=== PATIENT | male | born 1945 | race Caucasian/White ===

== ENCOUNTER 2021-04-11 13:22 | Outpatient (CLI) | payer MEDICARE, BC ==
[2021-04-12 01:33] LABS: SARS-CoV-2 PCR by NAA Not Detected (NotDetected)
== END 2021-04-11 13:23 | disposition home or self-care (01) ==
LOC: CSHLAB 13:22
PROVIDERS: ATTEND Internal Medicine Pulmonary Disease
DX: Z20.822 Contact with and (suspected) exposure to COVID-19 (principal)
CPT/HCPCS: U0003; U0005

== ENCOUNTER 2022-11-06 10:58 | Outpatient (CLI) | payer MEDICARE, BC ==
[2022-11-06] MEDS ORDERED: Magnevist 469MG/ML 20 ML VIAL ONE (15:15)
== END 2022-11-06 10:59 | disposition home or self-care (01) ==
LOC: CSHSPEC 10:58
PROVIDERS: ATTEND Urology
DX: R97.20 Elevated prostate specific antigen [PSA] (principal); Z95.0 Presence of cardiac pacemaker
CPT/HCPCS: 71045; 72197; 82565; A9579

== ENCOUNTER 2023-05-20 13:26 | Outpatient (CLI) | payer MEDICARE, BC | END 2023-05-20 13:27 | disposition home or self-care (01) | LOC: CSHCT 13:26 | PROVIDERS: ATTEND Internal Medicine | DX: Z12.2 Encounter for screening for malignant neoplasm of respiratory organs (principal); Z87.891 Personal history of nicotine dependence; J43.9 Emphysema, unspecified; I70.90 Unspecified atherosclerosis | CPT/HCPCS: 71271 ==

== ENCOUNTER 2024-02-18 07:52 | Outpatient (CLI) | payer MEDICARE, BC | END 2024-02-18 07:53 | disposition home or self-care (01) | LOC: CSHMRI 07:52 | PROVIDERS: ATTEND Physical Medicine & Rehabilitation | DX: M54.2 Cervicalgia (principal); M25.511 Pain in right shoulder; M54.50 Low back pain, unspecified; M47.812 Spondylosis without myelopathy or radiculopathy, cervical region; M48.02 Spinal stenosis, cervical region; M75.121 Complete rotator cuff tear or rupture of right shoulder, not specified as traumatic; M19.011 Primary osteoarthritis, right shoulder; M47.816 Spondylosis without myelopathy or radiculopathy, lumbar region; M51.26 Other intervertebral disc displacement, lumbar region | CPT/HCPCS: 72141; 72148 ==

== ENCOUNTER 2024-06-13 10:42 | Outpatient (CLI) | payer MEDICARE, BC | END 2024-06-13 10:43 | disposition home or self-care (01) | LOC: CSHCT 10:42 | PROVIDERS: ATTEND Internal Medicine | DX: Z12.2 Encounter for screening for malignant neoplasm of respiratory organs (principal); Z87.891 Personal history of nicotine dependence; J43.9 Emphysema, unspecified | CPT/HCPCS: 71271 ==